=== PATIENT | female | born 1955 | race Caucasian/White ===

== ENCOUNTER 2021-09-14 01:17 | Emergency (ER) | payer MEDICARE ==
--- NOTE | 2021-09-14 01:30 | ED Physician Documentation ---
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 also with nausea, vomiting in proportion to her degree of dizziness. Denies headache. She also says her head felt weird (per patient); in trying to elaborate, she says she noted decreased sensation across her forehead when she had her hand to her forehead as she was vomiting into toilet and holding her hand to her head. Denies h/o similar symptoms. Review of Systems Constitutional: reports: Reviewed and negative Eyes: reports: Reviewed and negative Cardiac: reports: Reviewed and negative Respiratory: reports: Reviewed and negative GI: reports: Nausea, Vomiting Musculoskeletal: reports: Reviewed and negative Neurologic: denies: Generalized weakness, Focal weakness, Numbness, Altered mental status, Headache, Head injury PD PAST MEDICAL HISTORY - Past Medical History Past Medical History: Yes GI: GERD - Allergies Allergies/Adverse Reactions: Allergies Allergy/AdvReac Type Severity Reaction Status Date / Time Sulfa (Sulfonamide Allergy Hives Verified 09/14/21 01:28 Antibiotics) - Living Situation Living Arrangement: reports: At home PD ED PE NORMAL - Vitals Vital signs reviewed: Yes - General General: Alert and oriented X 3, No acute distress, Well developed/nourished - HEENT HEENT: Atraumatic, PERRL, EOMI, Moist mucous membranes - Neck Neck: Supple, no meningeal sign - Cardiac Cardiac: RRR, No murmur, No gallop, No rub - Respiratory Respiratory: No respiratory distress, Clear bilaterally - Abdomen Abdomen: Soft, Non tender - Neuro Neuro: Alert and oriented X 3, 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, No motor deficit, No sensory deficit, Normal speech Eye Opening: Spontaneous Motor: Obeys Commands Verbal: Oriented GCS Score: 15 Results - Vitals Vitals: Oxygen O2 Source Room air - Labs Labs: Laboratory Tests 09/14/21 09/14/21 02:12 02:12 WBC 7.6 RBC 4.68 Hgb 14.4 Hct 42.4 MCV 90.6 MCH 30.8 MCHC 34.0 RDW 12.8 Plt Count 214 MPV 9.6 Neut # (Auto) 4.7 Lymph # (Auto) 2.3 [place] # (Auto) 0.5 Eos # (Auto) 0.1 Baso # (Auto) 0.0 Absolute Nucleated RBC 0.00 Nucleated RBC % 0.0 Sodium 137 Potassium 3.7 Chloride 100 L Carbon Dioxide 27 Anion Gap 10.0 BUN 18 Creatinine 0.8 Estimated GFR (MDRD) 72 L Glucose 130 H Calcium 9.4 - Rads (name of study) CT head Radiology: Prelim report reviewed, See rad report PD MEDICAL DECISION MAKING - ED course Complexity details: reviewed results, re-evaluated patient, considered differential, d/w patient ED course: patients HPI suggests peripheral vertigo with sudden onset of dizziness and sensation of room moving / spinning initiated by movement of head but only gradually improved with holding head still. CT head without concerning/acute findings. overall, her H+P is most suggestive of peripheral vertigo. As her symptoms have resolved at the time of this evaluation, no medications given. Results reviewed with patient, diagnosis (vertigo) discussed, return precautions discussed. I advised her to use meclizine per label instructions for further episodes of similar symptoms, available over the counter (I advised her one of the more common brand names is bonine). Departure - Departure Disposition: 01 Home, Self Care Clinical Impression: Vertigo Condition: Good Instructions: ED Vertigo Unspecified Comments: You can use meclizine for vertigo episodes. this is available [id number] (no prescription needed). One of the more common brand names is Bonine, but the generic is meclizine. Discharge Date/Time: 09/14/21 04:08
[2021-09-14 02:18] LABS: BASOPHILS % (AUTO) 0.5 %; EOSINOPHILS # (AUTO) 0.1 10^3/uL (0.0-0.7); HCT - HEMATOCRIT 42.4 % (37.0-47.0); HGB - HEMOGLOBIN 14.4 g/dL (12.0-16.0); LYMPHOCYTES # (AUTO) 2.3 10^3/uL (1.5-3.5); LYMPHOCYTES % (AUTO) 30.6 %; MEAN CORPUSCULAR HEMOGLOBIN 30.8 pg (27.0-31.0); MEAN CORPUSCULAR VOLUME 90.6 fL (81.0-99.0); MEAN PLATELET VOLUME 9.6 fL (7.9-10.8); MONOCYTES # (AUTO) 0.5 10^3/uL (0.0-1.0); MONOCYTES % (AUTO) 6.2 %; NEUTROPHILS # (AUTO) 4.7 10^3/uL (1.5-6.6); NEUTROPHILS % (AUTO) 61.4 %; PLT - PLATELET COUNT 214 10^3/uL (130-450); RED BLOOD COUNT 4.68 10^6/uL (4.20-5.40); RED CELL DISTRIBUTION WIDTH 12.8 % (12.0-15.0); WHITE BLOOD COUNT 7.6 x10^3/uL (4.8-10.8)
[2021-09-14 02:27] LABS: CALCIUM 9.4 mg/dL (8.5-10.3); CREATININE 0.8 mg/dL (0.4-1.0); POTASSIUM 3.7 mmol/L (3.5-5.0)
[2021-09-14 04:00] VITALS: BP 170/97
--- NOTE | 2021-09-14 08:16 | CT Report ---
PROCEDURE: HEAD WO INDICATIONS: dizziness, n/v, PLUMMER TECHNIQUE: Noncontrast 4.5 mm thick angled axial sections acquired from the foramen magnum to the vertex. For r adiation dose reduction, the following was used: automated exposure control, adjustment of mA and/or kV according to patient size. COMPARISON: None. FINDINGS: Image quality: There is streak artifact seen through the skull base. CSF spaces: Basal cisterns are patent. No extra-axial fluid collections. Ventricles are normal in size and shape. Brain: No midline shift. No intracranial masses or hemorrhage. Tracey-white matter interface is norm al. Age-appropriate brain parenchymal volume loss and chronic small vessel ischemic change can be se en. Skull and face: Calvarium and visualized facial bones are intact, without suspicious lesions. Sinuses: There is complete opacification of the left maxillary sinus. Areas of increased density with calcification can be seen within the left maxillary sinus. The medial wall of the left maxillary sin us is bowed medially. There is thickening of the lateral and anterior [place] of the left maxillary sin us. The left ostiomeatal complex is completely opacified and demineralized. Mild mucosal thickening i s seen within the ethmoid air cells. The paranasal sinuses are otherwise relatively clear. No signifi cant abnormal fluid can be seen within the mastoid air cells. IMPRESSION: No significant intracranial abnormality is seen. Focal, chronic appearing left maxillary sinus disease noted. Given the increased density and calcific ation within the left maxillary sinus, please consider fungal sinusitis. Note: No significant discrepancy from the preliminary report. Reviewed by: Santos Huang MD on 09/14/2021 7:15 AM CRISTINA Approved by: Santos Huang MD on 09/14/2021 7:15 AM CRISTINA Station ID: [id number]
== END 2021-09-14 04:08 | disposition home or self-care (01) ==
LOC: ED 01:17
DX: R42 Dizziness and giddiness (principal)
CPT/HCPCS: 36415; 80048; 85025; 99282; 99284

== ENCOUNTER 2022-10-25 23:58 | Emergency (ER) | payer MEDICARE, OTHER ==
[2022-10-26 00:17] VITALS: BP 165/87
[2022-10-26] MEDS ORDERED: diphenhydrAMINE 25 MG CAPSULE PO STA (00:19)
[2022-10-26] MEDS ORDERED: DEXAMETHASONE 10 MG/ML VIAL PO STA (00:20)
[2022-10-26] MEDS ORDERED: FAMOTIDINE 20 MG TABLET PO STA (00:20)
[2022-10-26] MEDS ORDERED: CHERRY SYRUP 10 ML UDC PO ONE (00:20)
--- NOTE | 2022-10-26 01:02 | ED Physician Documentation ---
PD HPI SKIN - Stated complaint Stated Complaint: ALLERGIC REACTION - Chief complaint Chief Complaint: Allergic Rx - History obtained from History obtained from: Patient - Additional information Additional information: 67-year-old woman presented to the ED with right eye swelling, hand swelling and back pain and itching after an insect bite to The back of her neck. She has no known allergies to insects. Denies shortness of breath, chest pain, dizziness, nausea, throat swelling or tongue or lip swelling. PD PAST MEDICAL HISTORY - Past Medical History GI: GERD - Present Medications Home Medications: Ambulatory Orders Medication Instructions Recorded Confirmed Losartan/Hydrochlorothiazide 2 each PO DAILY 10/26/22 10/26/22 [Losartan-Hctz 100-12.5 mg Tab] Omeprazole Magnesium 20 mg PO DAILY PM 10/26/22 10/26/22 - Allergies Allergies/Adverse Reactions: Allergies Allergy/AdvReac Type Severity Reaction Status Date / Time Sulfa (Sulfonamide Allergy Hives Verified 10/26/22 00:14 Antibiotics) PD ED PE NORMAL - Vitals Vital signs reviewed: Yes - General General: Alert and oriented X 3, No acute distress, Well developed/nourished - HEENT HEENT: Atraumatic, PERRL, EOMI, Moist mucous membranes, Pharynx benign, Other (Right eyelid Mild swelling) - Neck Neck: Supple, no meningeal sign - Cardiac Cardiac: RRR - Respiratory Respiratory: No respiratory distress, Clear bilaterally Results - Vitals Vitals: Vital Signs - 24 hr 10/26/22 00:10 Temperature 35.9 C L Heart Rate 74 Respiratory 17 Rate Blood Pressure 165/87 H O2 Saturation 97 Oxygen O2 Source Room air PD Medical Decision Making - ED course ED course: 67-year-old woman presented the ED with allergic reaction insect bite. Steroids and Benadryl were provided with improvement. Return precautions given. Patient will follow up with her primary care provider for referral to allergy and immunology. Departure - Departure Disposition: 01 Home, Self Care Clinical Impression: Urticaria Condition: Stable Instructions: ED Bite Sting Insect Gen Allergic React Comments: You were seen in the emergency department after a insect sting. You can take Benadryl 50 mg every 6 hours as needed for itching and rash. Return to the emergency department if you have other concerns. Follow-up with your primary care provider for referral to allergy and immunology. Discharge Date/Time: 10/26/22 01:10
[2022-10-26] MEDS ORDERED: DEXTROSE 50% ABBOJECT 25 GM/50 ML SYRINGE IVP STA (03:45)
[2022-10-26] MEDS ORDERED: INSULIN REGULAR HUMAN 300 UNIT/3 ML VIAL IVP STA (03:45)
== END 2022-10-26 01:10 | disposition home or self-care (01) ==
LOC: ED 23:58
DX: L50.9 Urticaria, unspecified (principal)
CPT/HCPCS: 99283; A9270